=== PATIENT | female | born 1985 | race Caucasian/White ===

== ENCOUNTER 2019-03-02 23:07 | Emergency (ER) | payer BC ==
--- NOTE | 2019-03-03 00:02 | RADIOLOGY REPORT (SQ) ---
EXAM DESCRIPTION: XR ANKLE 3 OR MORE VIEWS COMPLETED DATE/TME: 03/02/2019 00:00 CLINICAL HISTORY: 33 years, Female, fell down 2 steps COMPARISON: None. FINDINGS: 3 views of the right ankle. Degenerative spurring of the tibiotalar joint. Normal osseous mineralization. Questionable ossific fragment at the medial aspect of the distal fibula possibly representing avulsion fracture. Soft tissue edema. IMPRESSION: 1. Possible small avulsion fracture involving the medial aspect of the distal fibula at the level of the ankle joint. copyright 2010 [employer]- All Rights Reserved
[2019-03-03 01:07] VITALS: BP 120/76
[2019-03-03] MEDS ORDERED: HYDROCODONE/ACETAMINOPHEN 5-325 MG TABLET PO ONE (01:10)
--- NOTE | 2019-03-03 01:15 | ER Document Report ---
ED Extremity Problem, Lower - General Chief Complaint: Ankle Injury Stated Complaint: FALL Time Seen by Provider: 03/03/19 01:06 Mode of Arrival: Ambulatory Information source: Patient TRAVEL OUTSIDE OF THE [place] IN LAST 30 DAYS: No - HPI Patient complains to provider of: Injury, Pain Location: Ankle Notes: Patient is here with complaints of right ankle pain. She states she was walking down her steps when she missed the last 2 steps and injured her right ankle. Most of her pain is to the lateral aspect of the right ankle. She denies striking her head. No loss of consciousness. She denies foot or knee pain. Pain is constant, moderate, worse with ambulation, better with rest. No blood thinners. No chest pain or shortness of breath. No abdominal pain. No nausea, vomiting, diarrhea. No numbness, tingling, weakness. No other injuries or complaints at this time. - Related Data Allergies/Adverse Reactions: No Known Allergies Allergy (Unverified 03/03/19 01:04) Past Medical History - Social History Smoking Status: Never Smoker Frequency of alcohol use: None Drug Abuse: None Family History: Reviewed & Not Pertinent Patient has suicidal ideation: No Patient has homicidal ideation: No Renal/ Medical History: Denies: Hx Peritoneal Dialysis Past Surgical History: Reports: Hx Section Review of Systems - Review of Systems -: Yes All other systems reviewed and negative Physical Exam - Vital signs Vitals: Temp Pulse Resp BP Pulse Ox 98.6 F 92 18 150/77 H 93 03/02/19 23:17 03/02/19 23:17 03/02/19 23:17 03/02/19 23:17 03/02/19 23:17 - Notes Notes: GENERAL: alert, cooperative, nontoxic, no distress. HEAD: normocephalic, atraumatic EYES: conjunctiva pink without discharge, no external redness or swelling. EARS: no external swelling, no external redness NOSE: atraumatic, no external swelling MOUTH/THROAT: mucous membranes moist and pink NECK: soft, supple, full range of motion, no meningismus. CHEST: no distress, lungs clear and equal throughout. No wheezing, rales, rhonchi. CARDIAC: regular rate and rhythm, no murmur, normal capillary refill, normal pulses. BACK: full range of motion, no CVA tenderness. EXTREMITIES: full range of motion of all extremities. No redness, no swelling. Tenderness to palpation of the right lateral malleolus. Full range of motion with no obvious ligament instability. No foot tenderness. No proximal tib-fib tenderness. Achilles is intact with a normal Valencia's test. Normal pulse and sensation distally. NEURO: alert and oriented 3, no focal deficits, full range of motion of all extremities. PYSCH: appropriate mood, affect. Patient is cooperative. SKIN: pink, warm, dry, no rash. Course - Re-evaluation Re-evalutation: 03/03/19 01:12 Patient is nontoxic-appearing with stable vitals. Patient here with complaints of right ankle pain after falling down some steps. Patient has some mild tenderness to palpation of the lateral malleolus. On x-ray she is noted to have a small avulsion fracture to the distal fibula. She is tender in this area. Patient was placed in an Aircast, she was given crutches. She was given Rimrock prior to discharge. She will be discharged home with prescription for pain medication. Instructions to wear the splint and use crutches as needed for comfort. Rest, ice, elevate. Follow-up with orthopedics at the next available appointment for reevaluation. Follow-up sooner for worsening pain, fever, numbness, tingling, weakness, redness, any further concerns. The patient's emergency department workup and current diagnosis were explained to the patient and or family. Follow-up instructions were provided. Medications if prescribed were discussed. Instructions for when to return to the emergency department including specific worrisome symptoms were discussed with the patient and/or family. - Vital Signs Vital signs: Temp Pulse Resp BP Pulse Ox 98.1 F 66 17 120/76 100 03/03/19 01:04 03/03/19 01:04 03/03/19 01:04 03/03/19 01:04 03/03/19 01:04 - Diagnostic Test Radiology reviewed: Image reviewed, Reports reviewed - Right ankle with possible avulsion fracture to the right distal fibula. Procedures - Immobilization Right ankle Pre-Proc Neuro Vasc Exam: Normal Immobilizer type: Ankle stirrup Performed by: PCT Post-Proc Neuro Vasc Exam: Normal, Unchanged from pre-exam Alignment checked and good: Yes Discharge - Discharge Clinical Impression: Avulsion fracture of ankle Qualifiers: Encounter type: initial encounter Fracture type: closed Laterality: right Qualified Code(s): S82.891A - Other fracture of right lower leg, initial encounter for closed fracture Condition: Stable Disposition: HOME, SELF-CARE Instructions: Ankle Stirrup Splint ([facility]), Avulsion Fracture of the Ankle ([facility]) Additional Instructions: Take medication as prescribed. Wear splint and use crutches as needed. Rest, ice, elevate. Follow-up with orthopedics at the next available appointment for reevaluation. Follow-up sooner for worsening pain, fever, redness, numbness, tingling, weakness, any further concerns. Prescriptions: Hydrocodone/Acetaminophen [Rimrock 5-325 mg Tablet] 1 tab PO Q6H PRN #10 tab PRN Reason: Naproxen [Naprosyn] 500 mg PO BID #20 tablet Referrals: JONAS ESQUIVEL MD [ACTIVE STAFF] - Follow up as needed
== END 2019-03-03 01:50 | disposition home or self-care (01) ==
LOC: ER 23:07
PROC: 2W3QX1Z Immobilization of Right Lower Leg using Splint (ICD-10-PCS; principal; 2019-03-02)
DX: S82.891A Other fracture of right lower leg, initial encounter for closed fracture (principal); M25.571 Pain in right ankle and joints of right foot; W10.9XXA Fall (on) (from) unspecified stairs and steps, initial encounter
CPT/HCPCS: 99283; 73610; 29515; L4350